=== PATIENT | male | born 1995 | race Caucasian/White ===

== ENCOUNTER 2023-09-30 13:32 | Emergency (ER) | payer BC ==
[~2023-09-30] VITALS: Ht 172.7 cm; Wt 70.3 kg
[2023-09-30] MEDS ORDERED: DOCU-160 PO (14:29)
[2023-09-30 15:05] VITALS: BP 132/73; TEMP 98; O2SAT 98
== END 2023-09-30 15:00 | disposition home or self-care (01) ==
LOC: ER 13:32
DX: K60.2 Anal fissure, unspecified (principal)

== ENCOUNTER 2023-10-11 01:27 | Emergency (ER) | payer BC ==
[~2023-10-11] VITALS: Ht 177.8 cm; Wt 70.3 kg
[~2023-10-11 01:27] MED LIST: DOCU-160 PO
[2023-10-11 01:59] VITALS: BP 118/84; TEMP 98
[2023-10-11] MEDS ORDERED: SULF1TAB48 PO (02:34)
[2023-10-11] MEDS ORDERED: IBUP-1957 PO (02:34)
[2023-10-11 02:57] VITALS: O2SAT 98
== END 2023-10-11 02:57 | disposition home or self-care (01) ==
LOC: ER 01:29
DX: K61.0 Anal abscess (principal); Z79.899 Other long term (current) drug therapy